=== PATIENT | male | born 1985 | race Asian ===

== ENCOUNTER 2017-03-10 21:15 | Emergency (ER) | payer BC ==
[~2017-03-10] VITALS: Ht 177.8 cm; Wt 79.4 kg
[2017-03-10] MEDS ORDERED: Haloperidol 5mg/ml Inj ONE (21:17)
[2017-03-10] MEDS ORDERED: LORazepam Inj 2mg/ml 1ml ONE (21:17)
[2017-03-10 21:20] VITALS: BP 149/81
[2017-03-10] MEDS ORDERED: LORazepam Inj 2mg/ml 1ml IM ONE (21:30)
[2017-03-10] MEDS ORDERED: Haloperidol 5mg/ml Inj IM ONE (21:30)
[2017-03-10 22:17] LABS: BASOPHILS % (AUTO) 0.8 % (0.0-2.0); EOSINOPHILS % (AUTO) 0.3 % (0.0-3.0); MEAN CORPUSCULAR HEMOGLOBIN 29.5 PG (27.0-31.0); MEAN CORPUSCULAR VOLUME 92 FL (80-99); MEAN PLATELET VOLUME 7.7 FL (6.5-10.1); MONOCYTES % (AUTO) 9.5 % (1.0-10.0); NEUTROPHILS % (AUTO) 76.3 % (45.0-75.0); PLATELET COUNT 219 K/UL (150-450); RED BLOOD COUNT 4.57 M/UL (4.70-6.10); RED CELL DISTRIBUTION WIDTH 12.1 % (11.6-14.8); WHITE BLOOD COUNT 7.7 K/UL (4.8-10.8)
[2017-03-10 22:35] LABS: ACETAMINOPHEN < 10 ug/mL (10-30); ALANINE AMINOTRANSFERASE 51 U/L (3-41); ALBUMIN/GLOBULIN RATIO 1.8 (1.0-2.7); ALCOHOL < 10 mg/dL; ANION GAP 15 (5-15); ASPARTATE AMINO TRANSFERASE 36 U/L (5-40); CALCIUM 9.2 mg/dL (8.6-10.2); CARBON DIOXIDE 23 mEQ/L (20-30); CHLORIDE 100 mEQ/L (98-107); CREATININE 1.1 mg/dL (0.7-1.2); GLOMERULAR FILTRATION RATE > 60 mL/min (>60); HEMOLYSIS 5; POTASSIUM 3.4 mEQ/L (3.4-4.9); SODIUM 138 mEQ/L (135-145); TOTAL PROTEIN 6.9 g/dL (6.6-8.7)
--- NOTE | 2017-03-10 22:36 | Emergency Room Report ---
History of Present Illness General Chief Complaint: Altered Level of Consciousness Source: Patient, Family Member Present Illness HPI Is a 31-year-old male with no past medical history. He has no confirm psychiatric history but is seen a counselor for mental health/anxiety. He's been having complaint of abdominal pain and was prescribed Cipro and Flagyl for Escherichia coli infection by his doctor. He's been on it for about 5 days now. For the last couple days he said he couldn't sleep and is hallucinating. He was cannot out of it at dinner tonight. Also in he stood up and was yelling and fell to the ground and was spinning around according to his mom. They called 911. Patient was very agitated and screaming. Denies any alcohol drugs. Denies any nausea or vomiting. No fever or chills. Allergies: Coded Allergies: CARBAMAZEPINE (Verified Allergy, Unknown, 03/10/17) PHENYTOIN (Verified Allergy, Unknown, 03/10/17) Patient History Past Medical History: none, see triage record, old chart reviewed Past Surgical History: none Family History: none Social History: other Immunizations: UTD Reviewed Nursing Documentation: PMH: Agreed, PSxH: Agreed Review of Systems ENT: Denies: sore throat Cardiovascular: Denies: chest pain, palpitations Gastrointestinal/Abdominal: Denies: nausea, vomiting, diarrhea Musculoskeletal: Denies: back problems Skin: Denies: rash Neurological: Denies: CORRAL, seizures All Other Systems: negative except mentioned in HPI Physical Exam Vital Signs Date Time Temp Pulse Resp B/P (MAP) Pulse Ox O2 Delivery O2 Flow Rate FiO2 03/10/17 21:16 98.4 107 22 149/81 98 Room Air vital unremarkable Sp02 EP Interpretation: reviewed, normal General Appearance: alert/responsive, no apparent distress, non-toxic, other - Patient is screaming and agitated Head: normocephalic, atraumatic Eyes: PERRL, EOMI ENT: oropharynx normal Neck: supple/symm/no masses Respiratory: effort normal, no rhonchi, no wheezing Cardiovascular: no murmur, gallop, rub Gastrointestinal: non-tender, no mass, non-distended, no rebound/guarding, normal bowel sounds Musculoskeletal: normal inspection Neurologic: oriented x3, sensory intact, motor strength/tone normal Skin: no rash, normal palpation Medical Decision Making Diagnostic Impression: Primary Impression: Psychosis Qualified Codes: F23 - Brief psychotic disorder ER Course Patient with acute psychosis. This may be secondary to lack of sleep. He is family thinks this may be secondary to antibiotics. He sleeping comfortably through the night. No restraints require. We'll discharge home. Last Vital Signs Date Time Temp Pulse Resp B/P (MAP) Pulse Ox O2 Delivery O2 Flow Rate FiO2 03/10/17 21:20 98.4 80 22 149/81 98 Room Air Status: improved Disposition: HOME, SELF-CARE Condition: Improved Referrals: NOT CHOSEN IPA/,REFERRING (PCP) Additional Instructions: Stop your antibiotics. Followup with your Dr. for referral to psychiatrist. Return if symptom worsen. Followup within a week. PARKER CAMARILLO M.D. Mar 10, 2017 22:36
[2017-03-10 23:20] VITALS: BP 128/79
[2017-03-11 00:10] LABS: APPEARANCE,URINE CLEAR; KETONES,URINE 3+ (NEGATIVE); LEUKOCYTE ESTERASE ,URINE 1+ (NEGATIVE); NITRITE,URINE NEGATIVE (NEGATIVE); PH,URINE 6 (4.5-8.0); PROTEIN,URINE 2+ (NEGATIVE); UROBILINOGEN,URINE NORMAL MG/DL (0.0-1.0)
[2017-03-11 00:33] LABS: BACTERIA,URINE FEW /HPF; MUCUS,URINE MODERATE /LPF (NONE/OCC); SQUAMOUS EPITHELIAL CELL,UR FEW /LPF (NONE/OCC)
[2017-03-11 01:20] VITALS: BP 115/75
[2017-03-11 03:20] VITALS: BP 126/73
[2017-03-11 05:28] VITALS: BP 124/77
[2017-03-11] MEDS ORDERED: ATIVAN1 MG ORAL (06:04)
[2017-03-11 06:10] VITALS: BP 124/77
== END 2017-03-11 06:10 | disposition home or self-care (01) ==
LOC: EDBD 21:15 → EMR 21:50
DX: F23 Brief psychotic disorder (principal); Z88.8 Allergy status to other drugs, medicaments and biological substances
CPT/HCPCS: 36415; 80053; 80300; 81003; 85025; 96360; 96372; 99284; G0480; J1630; 80329